=== PATIENT | female | born 1990 | race Two or more races ===

== ENCOUNTER 2022-02-08 05:10 | Inpatient (IN) | payer OTHER ==
[~2022-02-08] VITALS: Ht 154.9 cm; Wt 66.2 kg
[2022-02-08] MEDS ORDERED: PRENATAL TABLE1 EAC1 (06:50)
== END 2022-02-10 14:36 | disposition home or self-care (01) | DRG 788 ==
LOC: OB/GYN 05:10 → LDR 05:10 → OB/GYN 21:33
PROVIDERS: ADMIT Specialist; ATTEND Specialist
PROC: 4A1HXCZ Monitoring of Products of Conception, Cardiac Rate, External Approach (ICD-10-PCS; 2022-02-08)
PROC: 10D00Z1 Extraction of Products of Conception, Low, Open Approach (ICD-10-PCS; principal; 2022-02-08 20:00)
DX: O82 Encounter for cesarean delivery without indication (principal); O76 Abnormality in fetal heart rate and rhythm complicating labor and delivery; Z3A.39 39 weeks gestation of pregnancy; Z37.0 Single live birth; Z20.822 Contact with and (suspected) exposure to COVID-19